=== PATIENT | male | born 2000 | race African-American/Black ===

== ENCOUNTER 2021-08-08 06:38 | Emergency (ER) | payer BC ==
[~2021-08-08] VITALS: Ht 195.6 cm; Wt 150.6 kg
[2021-08-08] MEDS ORDERED: RT-ALBUTEROL HFA 8.5 GM INHALER IH STA (07:20)
--- NOTE | 2021-08-08 07:20 | ED General ---
General Stated Complaint: ACHE ALL OVER,HEAD SPINNING,DROWSY,WEAK Source of Information: Patient Exam Limitations: No Limitations History of Present Illness Date Seen by Provider: Aug 08, 2021 Time Seen by Provider: 06:43 Initial Comments 21-year-old male with past medical history of well-controlled asthma coming in due to 2 days of body aches, fatigue, and general malaise. 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 Has been vaccinated for COVID x2, and had COVID back in the beginning of the pandemic. Denies any vomiting, diarrhea, chest pain, significant shortness of breath, focal weakness or numbness, vision changes, rash, or any other concerns. Allergies and Home Medications Allergies Coded Allergies: No Known Drug Allergies (Unverified , 08/08/21) Patient Home Medication List Home Medication List Reviewed: Yes Review of Systems Review of Systems Constitutional: chills; No fever EENTM: No blurred vision Respiratory: No cough, No short of breath Cardiovascular: No chest pain Gastrointestinal: No abdominal pain, No diarrhea, No nausea, No vomiting Genitourinary: no symptoms reported Musculoskeletal: no symptoms reported Skin: no symptoms reported Psychiatric/Neurological: No Symptoms Reported Hematologic/Lymphatic: No Symptoms Reported Immunological/Allergic: no symptoms reported All Other Systems Reviewed Negative Unless Noted: Yes Past Jwcelsw-Orwtrx-Ilegya Hx Patient Social History Tobacco Use?: No Substance use?: No Alcohol Use?: Yes Alcohol Frequency: Once in a while Past Medical History Surgeries: No Physical Exam Vital Signs Capillary Refill : Height, Weight, BMI Height: '" Weight: lbs. oz. kg; BMI Method: General Appearance: No Apparent Distress, WD/WN Eyes: Bilateral Eye Normal Inspection, Bilateral Eye PERRL HEENT: PERRL/EOMI, Normal ENT Inspection, Pharynx Normal Neck: Full Range of Motion, Normal Inspection, Non Tender, Supple, Other (No meningismus, negative jolt test) Respiratory: Chest Non Tender, Lungs Clear, Normal Breath Sounds, No Accessory Muscle Use, No Respiratory Distress Cardiovascular: Regular Rate, Rhythm, No Edema, Normal Peripheral Pulses Gastrointestinal: Normal Bowel Sounds, Non Tender, Soft; No Distended, No Guarding Back: Normal Inspection, No CVA Tenderness Extremity: Normal Capillary Refill, Normal Inspection, Normal Range of Motion, Non Tender, No Calf Tenderness, No Pedal Edema Neurologic/Psychiatric: Alert, No Motor/Sensory Deficits, Normal Mood/Affect Skin: Normal Color, Warm/Dry Lymphatic: No Adenopathy Progress/Results/Core Measures Suspected Sepsis SIRS Temperature: Pulse: Respiratory Rate: Blood Pressure / Mean: Results/Orders My Orders Orders - ROSSI SAWANT MD Influenza A And B By Pcr (08/08/21 07:00) Covid 19 Inhouse Test (08/08/21 07:00) Vital Signs/I&O Capillary Refill : Progress Note : Progress Note 21-year-old male with above history coming in due to body aches and general malaise. ABCs were intact and vitals were stable on presentation. Physical exam reassuring with clear lungs and no other abnormalities. We will do COVID and flu testing, give him Tylenol, and he can trial albuterol here because he feels mildly short of breath. He does not even use an inhaler, because his asthma has been well controlled for many years. I discussed with him if it is not helping then he can discontinue its use. I believe he is stable for discharge with outpatient follow-up. He was sent home with strict return precautions peer Departure Impression Primary Impression: Flu-like symptoms Additional Impression: Person under investigation for COVID-19 Disposition: 01 HOME, SELF-CARE Condition: Stable Departure-Patient Inst. Decision time for Depature: 07:25 Referrals: NO,LOCAL PHYSICIAN (PCP/Family) Primary Care Physician Patient Instructions: COVID-19 Tests Add. Discharge Instructions: I recommend taking ibuprofen 600 mg every 6 hours for the next 3 days scheduled. If you have continued body aches you can take 1000 mg of Tylenol every 6-8 hours on top of this. Drink plenty of fluids. Rest over the next couple days and avoid being around people. Follow-up with student health in the next couple days if you are not feeling well. Work/School Note: School/Childcare Release Date Seen in the Emergency Department: Aug 08, 2021 Time Dismissed from Emergency Department: 07:19 Return to School: Aug 11, 2021 Restrictions: No Sports-Until Released, Return-No Fever (24hrs), Return-No Vomiting(24hrs) ROSSI SAWANT MD Aug 08, 2021 07:19
[2021-08-08] MEDS ORDERED: ACETAMINOPHEN 500 MG TAB (TYLENOL) PO ONE (07:30)
[2021-08-08 07:45] VITALS: BP 134/72
== END 2021-08-08 07:45 | disposition home or self-care (01) ==
LOC: ER 06:50
DX: J11.1 Influenza due to unidentified influenza virus with other respiratory manifestations (principal); Z20.822 Contact with and (suspected) exposure to COVID-19
CPT/HCPCS: 87636; 99283